=== PATIENT | female | born 1970 | race Hispanic/Latino ===

== ENCOUNTER 2017-03-23 13:06 | Outpatient (CLI) | payer OTHER ==
--- NOTE | 2017-03-23 16:05 | Mammography Report ---
BILATERAL DIGITAL SCREENING MAMMOGRAM with CAD: 03/23/17 13:06:00 CLINICAL: Baseline screening. FINDINGS: The breasts are almost entirely fatty. Right outer low density asymmetries require additional imaging.No architectural distortion or suspicious calcifications.The left breast is negative. IMPRESSION: Right symmetry is requiring further workup. BI-RADS CATEGORY: 0 -- Additional Imaging Evaluation Required RECOMMENDATION: Recall for right spot compression views and right breast ultrasound if needed. ACR BI-RADS MAMMOGRAPHIC CODES: 0 = Needs additional imaging evaluation; 1 = Negative; 2 = Benign; 3 = Probably benign; 4 = Suspicious; 5 = Malignant; 6 = Known biopsy-proven malignancy COMMENT: 1. Dense breast tissue, i.e., adenosis, fibrocystic changes, etc., may obscure an underlying neoplasm. 2. Approximately 10% of cancers are not detected with mammography. 3. A negative mammography report should not delay biopsy if a clinically suspicious mass is present. COMMENT: Patient follow-up letters are generated via our [employer] application.
== END 2017-03-23 13:07 | disposition home or self-care (01) ==
LOC: SPVWC 13:06
PROVIDERS: ATTEND Specialist
DX: Z12.31 Encounter for screening mammogram for malignant neoplasm of breast (principal)
CPT/HCPCS: 77067; G0202

== ENCOUNTER 2017-03-30 13:33 | Outpatient (CLI) | payer OTHER ==
--- NOTE | 2017-03-30 14:47 | Ultrasound Report ---
RIGHT DIGITAL DIAGNOSTIC MAMMOGRAM and RIGHT BREAST ULTRASOUND: 03/30/17 13:33:00 CLINICAL: Recalled for asymmetries. COMPARISON:03/23/17 screening FINDINGS: Spot compression views were performed and demonstrate several low-density circumscribed nodules or lymph nodes. Ultrasound of the right breast (including all four quadrants and the retroareolar area) was performed and demonstrated no solid mass or shadowing. A benign cystic cluster at 11 o'clock 3 cm from the nipple measures 8 x 7 x 5 mm. A benign intraparenchymal lymph node at 8 o'clock 6 cm from the nipple measures 8 x 4 x 8 mm. IMPRESSION: No mammographic evidence of malignancy.Benign intramammary lymph nodes and a benign cystic cluster. BI-RADS CATEGORY: 2 - - Benign RECOMMENDATION: Routine mammographic screening in one year. ACR BI-RADS MAMMOGRAPHIC CODES: 0 = Needs additional imaging evaluation; 1 = Negative; 2 = Benign; 3 = Probably benign; 4 = Suspicious; 5 = Malignant; 6 = Known biopsy-proven malignancy COMMENT: 1. Dense breast tissue, i.e., adenosis, fibrocystic changes, etc., may obscure an underlying neoplasm. 2. Approximately 10% of cancers are not detected with mammography. 3. A negative mammography report should not delay biopsy if a clinically suspicious mass is present. COMMENT: Patient follow-up letters are generated via our [employer] application.
== END 2017-03-30 13:34 | disposition home or self-care (01) ==
LOC: SPVWC 13:33
PROVIDERS: ATTEND Specialist
DX: N64.89 Other specified disorders of breast (principal)
CPT/HCPCS: 76641; G0206